=== PATIENT | male | born 1940 | race Caucasian/White ===

== ENCOUNTER → 2019-11-18 | Outpatient (CLI) | payer OTHER, MEDICARE ==
[~2019-11-18] MED LIST: ASA81BEC PO; CLARITIN10 M3 PO; HYOSCYAMINE0.125 MG PO; LIPITOR 20 MG T20 M1 PO; LOSARTAN POTASS50 MG PO; PRILOSEC OTC20 MG PO; TRELEGY ELLIPT1 EACH INH; VITAMIN D31250 MC1 PO
== END ==
LOC: LAB 10:28
PROVIDERS: ATTEND Student in an Organized Health Care Education/Training Program
DX: Z01.818 Encounter for other preprocedural examination (principal); Z11.59 Encounter for screening for other viral diseases

== ENCOUNTER → 2019-11-21 | Outpatient (CLI) | payer OTHER, MEDICARE ==
[~2019-11-21] VITALS: Ht 180.3 cm; Wt 90.7 kg
--- NOTE | 2019-11-24 10:03 | P ---
[facility] [place] [address] PROCEDURE REPORT Name: CARLOS ROE Room #: REG [facility]#: [id number] Admission: 11/21/19 Attend Phys: Abel Andrew MD Discharge: Date of : 40 Report #: [id number] THIS REPORT FOR: cc: Nicole De Anda MD, Constance M. MD Thesing,Abel Thurston MD ~ CC: Nicole Andrew DATE OF SERVICE: 11/21/2019 OUTPATIENT COLONOSCOPY REPORT BRIEF HISTORY: The patient is a 78-year-old male with a history of multiple colon polyps. He presents for high risk screening colonoscopy. His last colonoscopy was about 3 years ago. PREOPERATIVE DIAGNOSIS: High risk screening colonoscopy. POSTOPERATIVE DIAGNOSES: 1. Multiple colon polyps. 2. Moderate sigmoid diverticulosis coli. 3. Small internal hemorrhoids. MEDICATIONS: Deep sedation with propofol per anesthesia. SPECIMENS: 1. A 6-8 mm sessile polyp, cecum. 2. Diminutive polyp, mid ascending colon. 3. Diminutive polyps x 2, hepatic flexure. 4. Diminutive polyp, proximal transverse colon. 5. Diminutive polyp, 70 cm. 6. Diminutive polyps x 2 at 60 cm. ESTIMATED BLOOD LOSS: 3 mL. PROCEDURE: Colonoscopy to cecum and terminal ileum with snare polypectomy and biopsy. FINDINGS: Prior to propofol sedation, procedure of colonoscopy discussed with the patient as well as potential risks and its complications. He indicates he understands and desires to proceed. DESCRIPTION OF PROCEDURE: With the patient in left lateral decubitus position, digital examination was completed, which revealed no abnormalities. [facility] [address] [place] [address] PROCEDURE REPORT Name: CARLOS ROE Room #: REG [facility]#: [id number] Admission: 11/21/19 Attend Phys: Abel Andrew MD Discharge: Date of : 40 Report #: [id number] Subsequently, the Olympus video colonoscope was introduced and advanced under direct vision to the cecum. The cecum was identified by the ileocecal valve and the appendiceal orifice. At that point, the scope was slowly withdrawn and careful circumferential views were obtained including retroflexion of the scope in the ascending colon. There were some limitations of the prep. With cleanup, reasonably good views were obtained. As we withdrew the scope, he is found to have a 6-8 mm sessile polyp in the cecum. This was removed by cold snare polypectomy. In the mid ascending colon, one polyp was seen and removed by cold snare polypectomy. At the hepatic flexure, 2 diminutive polyps were seen and removed by cold snare polypectomy and recovered. In the proximal transverse colon, the 4-5 mm flat polyp was seen and removed by cold snare polypectomy and recovered. At 70 cm, a diminutive polyp was seen and removed with biopsy forceps. At 60 cm, 2 polyps were seen; one was about 5 mm and removed by cold snare polypectomy. The other was a diminutive polyp removed with biopsy forceps. The scope was further withdrawn and no additional polypoid lesions were seen. There was moderate sigmoid diverticulosis coli without endoscopic evidence of diverticulitis. Scope was further withdrawn, no additional abnormalities were seen. Scope was withdrawn in the rectum and no abnormalities were seen. Upon retroflexion, no abnormalities were seen. Scope was withdrawn. The patient tolerated the procedure well. CONDITION OF THE PATIENT UPON DISCHARGE: Following procedure, the patient drowsy, aroused, conversant and will be discharged home when fully ambulatory. INSTRUCTIONS TO THE PATIENT AND FAMILY AT THE TIME OF DISCHARGE: Eight polyps were identified and removed today. We will followup on the pathology and make further recommendations. At this point in time, we would have him return in 3 years for high risk screening colonoscopy once again. He will otherwise return to the care of Dr. Nicole De Anda. Return to see me as needed. <ELECTRONICALLY SIGNED> By: Abel Andrew MD 11/24/19 1003 1240 1336 Abel Andrew MD /nt
--- NOTE | 2019-11-25 15:07 | PATH ---
[facility] [place] [address] PATHOLOGY RPT PROCEDURE Name: CARLOS MOSER Room #: REG [facility].#: [id number] Admission: 11/21/19 Date of : 40 Discharge: Report #: [id number] Path Case #: [id number] [facility] Accession Number: [id number] . 01 Material submitted: . PART A: cecum - POLYP AT CECUM PART B: colon - POLYP AT MID-ASCENDING COLON. Modifiers: mid, ascending PART C: hepatic flexure - POLYP AT HEPATIC FLEXURE X2 PART D: colon - POLYP AT PROXIMAL TRANSVERSE COLON. Modifiers: proximal, transverse PART E: colon - POLYP AT 70CM PART F: colon - POLYP AT 60CM X2 . 01 Clinical history: . History of polyps . 02 Diagnosis: A. Polyp, at cecum, endoscopic biopsy: - Tubular adenoma. - Negative for high-grade dysplasia. . B. Polyp, at mid ascending colon, endoscopic biopsy: - Tubular adenoma. - Negative for high-grade dysplasia. . C. Polyp x2, at hepatic flexure, endoscopic biopsy: - Hyperplastic changes within all fragments. - Negative for dysplasia. . D. Polyp, at proximal transverse colon, endoscopic biopsy: - Tubular adenoma. - Negative for high-grade dysplasia. . E. Polyp, at 70 cm, endoscopic biopsy: - Tubular adenoma. - Negative for high-grade dysplasia. . F. Polyp x2, at 60 cm, endoscopic biopsy: - Tubular adenoma x2. - Negative for high-grade dysplasia. (IUV:daysi; 11/25/2019) S 11/25/2019 1333 Local . 02 Electronically signed: . Amy Molina MD, Pathologist NPI- [id number] . [address] [address] PATHOLOGY RPT PROCEDURE Name: CARLOS MOSER W Room #: REG [facility]#: [id number] Admission: 11/21/19 Date of : 40 Discharge: Report #: [id number] Path Case #: [id number] Gross description: . A. The specimen is received in formalin, labeled "Carlos Moser, polyp at cecum" and consists of multiple fragments of antonio tissue measuring 1.0 x 0.8 x 0.3 cm in aggregate which are entirely submitted in A1. . B. The specimen is received in formalin, labeled "Carlso Moser, polyp at mid ascending colon" and consists of a fragment of pink-antonio tissue measuring 0.9 x 0.3 x 0.2 cm which is entirely submitted in B1. . C. The specimen is received in formalin, labeled "Carlos Moser, polyp at hepatic flexure x2" and consists of 3 fragments of pink-antonio tissue measuring between 0.4 x 0.3 cm and 0.6 x 0.4 cm which are entirely submitted in C1. . D. The specimen is received in formalin, labeled "MoserCarlos, polyp at proximal transverse colon" and consists of a segment of antonio-brown tissue measuring 1.2 x 0.4 x 0.1 cm which is entirely submitted in D1. . E. The specimen is received in formalin, labeled "Moser, Carlos, polyp at 70 cm" and consists of a fragment of pink-antonio tissue measuring 0.3 x 0.3 cm which is entirely submitted in E1. . F. The specimen is received in formalin, labeled "Carlos Moser, polyp at 60 cm x2" and consists of 3 fragments of antonio pink to brown tissue measuring between 0.4 x 0.3 x 0.1 cm and 0.7 x 0.2 x 0.1 cm which are entirely submitted in F1. (SDY; 11/24/2019) SYU/SYU 11/24/2019 1349 Local . 02 Pathologist provided ICD-10: D12.0, D12.2, D12.3, D12.6, Z86.010 . 02 CPT . 523326, 130581, 075199, 543637, [id number], 935321 Specimen Comment: A courtesy copy of this report has been sent to [phone], [phone] Specimen Comment: [id number] Specimen Comment: Report sent to / DR EDOUARD Performed at: [address] [facility], [place], [place] [id number] MD Cecil Acevedo MD Phone: [phone] Performed at: [address] [id number] MD Amy Molina MD Phone: [phone]
== END | disposition home or self-care (01) ==
LOC: GI 09:00
PROVIDERS: ATTEND Specialist
DX: Z12.11 Encounter for screening for malignant neoplasm of colon (principal); Z86.010 Personal history of colon polyps; D12.0 Benign neoplasm of cecum; D12.2 Benign neoplasm of ascending colon; D12.3 Benign neoplasm of transverse colon; D12.4 Benign neoplasm of descending colon; K57.30 Diverticulosis of large intestine without perforation or abscess without bleeding; K64.8 Other hemorrhoids; K21.9 Gastro-esophageal reflux disease without esophagitis; J43.9 Emphysema, unspecified; E78.5 Hyperlipidemia, unspecified; F17.210 Nicotine dependence, cigarettes, uncomplicated; Z98.890 Other specified postprocedural states; Z79.899 Other long term (current) drug therapy; Z88.8 Allergy status to other drugs, medicaments and biological substances
CPT/HCPCS: 62110; 62900